=== PATIENT | male | born 1955 | race African-American/Black ===

== ENCOUNTER → 2018-09-29 15:19 | Outpatient (CLI) | payer OTHER ==
[2015-10-03 13:53] VITALS: BMI 25.6
[~2018-09-29 15:19] MED LIST: ATHLETE'S FOOT15 GM TOPICAL; COREG 3.1253.125 MG PO; LANOXIN125 MCG PO; LASIX40 MG PO; LIPITOR20 MG PO; LISINOPRIL10 MG PO; LISINOPRIL2.5 MG PO; NEURONTIN 300300 MG PO; OMEPRAZOLE20 M1 PO; OPTIVE EYE DROP30 ML EACH EYE; PROVENTIL HFA6.7 GM INH; SPIRIVA18 MCG INH; TIAZAC/CARDIZE240 M1 PO; ULTRAM50 MG PO; UREA TOPICAL; VIAGRA100 MG PO; VITAMIN D250000 UNIT PO
== END | disposition home or self-care (01) ==
LOC: D.RT 15:19
PROVIDERS: ATTEND Orthopaedic Surgery
DX: J45.998 Other asthma (principal)